=== PATIENT | male | born 1970 | race Caucasian/White ===

== ENCOUNTER 2020-10-01 09:43 | Outpatient (REF) | payer MEDICARE, MEDICAID, SELFPAY ==
[2020-10-01 10:20] LABS: MANUAL DIFF FLAG NO
[2020-10-01 10:23] LABS: Basophils Percent Auto 0.7 % (0-2); Eosinophils Absolute Auto 0.3 X10*3/uL (0.0-0.4); Eosinophils Percent Auto 7.7 % (0-4); Hematocrit 43.9 % (42-52); Hemoglobin 15.3 g/dl (14.0-18.0); Imm Gran Abs Auto 0.01 X10*3/uL (0.00-0.03); Imm Gran Pct Auto 0.2 % (0.0-0.4); Lymphocytes Absolute Auto 1.2 X10*3/uL (1.2-4.9); Lymphocytes Percent Auto 28.4 % (20-40); Mean Corpuscular HGB Conc 34.9 g/dl (31.0-36.0); Mean Corpuscular Hemoglobin 30.6 pg (27.0-33.0); Mean Corpuscular Volume 87.8 fL (80-98); Monocytes Absolute Auto 0.4 X10*3/uL (0.1-1.2); Monocytes Percent Auto 9.4 % (2-11); Neutrophils Absolute Auto 2.2 X10*3/uL (2.0-8.3); Neutrophils Percent Auto 53.6 % (45-73); Platelet Count 210 X10*3/uL (160-400); Red Cell Distribution Width 12.7 % (11.0-16.0); White Blood Count 4.2 X10*3/uL (4.8-10.8)
[2020-10-01 10:42] LABS: Estimated Average Glucose 103 mg/dL; Hemoglobin A1c % 5.2 %
[2020-10-01 10:48] LABS: Glucose Urine UA NEG (NEG); Leukocyte Esterase Urine NEG (NEG); Nitrite Urine NEG (NEG); Urine Blood NEG (NEG); Urine Ketones NEG (NEG); Urine Protein NEG (NEG-TRACE)
[2020-10-01 10:56] LABS: Alanine Aminotransferase 50 U/L (0-40); Albumin Level 4.7 g/dL (3.5-5.0); Alkaline Phosphatase 64 U/L (39-117); Anion Gap 13 (12-20); Aspartate Amino Transferase 42 U/L (5-37); Bilirubin Total 0.4 mg/dL (0.0-1.0); Blood Urea Nitrogen 19 mg/dL (9-16); Calcium 9.3 mg/dL (8.4-10.2); Carbon Dioxide 25 mmol/L (22-29); Chloride 104 mmol/L (96-108); Cholesterol 226 mg/dL; Estimated Glomerular Filt Rate > 60; Glucose Fasting 132 mg/dL (60-99); HDL Cholesterol 43 mg/dL; LDL Cholesterol Calculated 141 mg/dl; Potassium 4.2 mmol/L (3.3-5.1); Sodium 138 mmol/L (135-145); Triglycerides 214 mg/dL
[2020-10-01 10:58] LABS: Color Urine YELLOW
[2020-10-01 10:59] LABS: Appearance Urine CLEAR
[2020-10-01 11:05] LABS: Creatinine Urine 130.81 mg/dL; Microalbumin Urine < 5.0 mg/L
[2020-10-01 11:20] LABS: Prostate Specific Antigen 0.77 ng/mL (<0.05-4.0)
== END 2020-10-01 09:44 | disposition home or self-care (01) ==
LOC: HO.LAB 09:43
PROVIDERS: PCP Internal Medicine; Visit Provider Internal Medicine
DX: R73.03 Prediabetes (principal); I10 Essential (primary) hypertension; K76.0 Fatty (change of) liver, not elsewhere classified; R79.89 Other specified abnormal findings of blood chemistry; Z12.5 Encounter for screening for malignant neoplasm of prostate
CPT/HCPCS: 36415; 80053; 80061; 81003; 82043; 83036; 84153; 85025

== ENCOUNTER 2021-11-18 06:29 | Day surgery (SDC) | payer MEDICARE, MEDICAID, SELFPAY ==
[2021-11-12 14:24] VITALS: BMI 31.4
--- NOTE | 2021-11-15 08:29 | HO.ANESPROP2 ---
Documented by User: Erum Ledesma NP 11/15/21 08:30 HPI - Anesthesia Eval Consult details Narrative: 51yo M for Colonoscopy [facility] Past Medical History Medical History (Updated 05/21/21 @ 09:34 by Rhona Pratt, RN) Common variable immunodeficiency COVID-19 vaccine series completed Fatty liver Gout HTN (hypertension) Hyperlipidemia GORDO on CPAP Surgical History Surgical History (Updated 05/20/21 @ 16:12 by Rhona Pratt, RN) History of esophagogastroduodenoscopy (EGD) History of umbilical hernia repair Hx of colonoscopy Social History Social History Are you a primary career and guidance counselor to a significant other at home: No Do you presently have visiting nurse or other home services: No Patient Tobacco Use Status: Former Tobacco user Quit Date: 30 yrs ago Tobacco use type: Cigarette Second Hand Smoke Exposure: No Use of substances other than those prescribed or required for medical reasons: No Are you DNR?: No Advance Directives: No Advance Directives Information Provided: Yes Advance Directives on File: No Meds Allergies Allergy/AdvReac Type Severity Reaction Status Date / Time codeine [Codeine] Allergy Intermediate SOB/TACHYCARDIA, Verified 11/18/21 06:55 tachycardia, SOB Shellfish Allergy Intermediate NAUSEA & Uncoded 05/20/21 16:12 VOMITING Home Medications Medication Instructions Recorded Confirmed Last Taken Type Hizentra QWEEK 05/21/21 Unknown History allopurinol 300 mg tablet 300 mg PO DAILY 05/21/21 11/12/21 Unknown History gemfibrozil 600 mg tablet 600 mg PO DAILY 05/21/21 11/12/21 Unknown History lisinopril 20 mg tablet 20 mg PO DAILY 05/21/21 11/12/21 11/18/21 History dcsmpnurkwru-lirsmrzj-ijrkkk 1 tab PO DAILY 05/21/21 11/12/21 Unknown History tablet (Multivitamin 50 Plus) Exam Exam Date and Time: November 15, 2021 0829 Height,Weight and Vital Signs: Height 5 ft 6.5 in Weight 89.811 kg Assessment and Plan Assessment Anesthesia Assessment: Chart Reviewed Documented by User: Pablo Shaffer MD 11/18/21 07:06 [facility] Past Medical History Medical History (Updated 05/21/21 @ 09:34 by Rhona Pratt, RN) Common variable immunodeficiency COVID-19 vaccine series completed Fatty liver Gout HTN (hypertension) Hyperlipidemia GORDO on CPAP Family History Family history of problems with anesthesia: No Surgical History Surgical History (Updated 05/20/21 @ 16:12 by Rhona Pratt, RN) History of esophagogastroduodenoscopy (EGD) History of umbilical hernia repair Hx of colonoscopy History of Problems with Anesthesia: No Social History Social History Are you a primary career and guidance counselor to a significant other at home: No Do you presently have visiting nurse or other home services: No Patient Tobacco Use Status: Former Tobacco user Quit Date: 30 yrs ago Tobacco use type: Cigarette Second Hand Smoke Exposure: No Use of substances other than those prescribed or required for medical reasons: No Are you DNR?: No Advance Directives: No Advance Directives Information Provided: Yes Advance Directives on File: No Meds Allergies Allergy/AdvReac Type Severity Reaction Status Date / Time codeine [Codeine] Allergy Intermediate SOB/TACHYCARDIA, Verified 11/18/21 06:55 tachycardia, SOB Shellfish Allergy Intermediate NAUSEA & Uncoded 05/20/21 16:12 VOMITING Home Medications Medication Instructions Recorded Confirmed Last Taken Type Hizentra QWEEK 05/21/21 Unknown History allopurinol 300 mg tablet 300 mg PO DAILY 05/21/21 11/12/21 Unknown History gemfibrozil 600 mg tablet 600 mg PO DAILY 05/21/21 11/12/21 Unknown History lisinopril 20 mg tablet 20 mg PO DAILY 05/21/21 11/12/21 11/18/21 History uzuzzuoktmkp-ndzqezsx-itcbfk 1 tab PO DAILY 05/21/21 11/12/21 Unknown History tablet (Multivitamin 50 Plus) Exam Airway Mallampati Class: II TM Dist: >3cm Neck ROM: Full Loose/Missing/Broken Teeth: No Heart: rrr+s1s2 Lungs: cta b/l Assessment and Plan Assessment Anesthesia Assessment: Anesthesia Plan Discussed Final Anesthetic Review Family History of Problems with Anesthesia: No History of Problems with Anesthesia: No NPO: Yes ASA Class: II Final Preanesthetic Review: No Changes in Pt Med Stat, Meds/Allgs Chart Reviewed, Consent Obtained/Reviewed and Anes Risks/Benef Reviewed Patient Risk: Intermediate Procedure Risk: Low Assessment/Block/Sedation in SS: Assess/Block/Sedation-SS Anesthetic Plan Anesthetic Plan: MAC: and Agree w/ Assess. and Plan Disposition: Standard PACU
[2021-11-18 07:00] VITALS: BP 125/80; PULSE 92; RESP 16; TEMP 36.2; O2SAT 97
[2021-11-18] MEDS: Lactated Ringers 1,000 ML 100 ML IVCONT (07:05)
[2021-11-18 08:38] VITALS: BP 138/98; PULSE 118; RESP 16; TEMP 36.5; O2SAT 96
--- NOTE | 2021-11-18 08:41 | PM.OP ---
Brief Operative Note Date of Service: 11/18/21 Pre-op diagnosis: Screening Post-op diagnosis: other (Colon Polyp) Procedure: Colonoscopy to the cecum and TI with hot snare polypectomy Surgeon: Joey Fuentes Anesthesia: MAC Was an Email Marketing Manager used for this Procedure?: No Estimated blood loss (mL): 0 Pathology: other (A. Ascending colon polyp) Condition: stable Disposition: PACU
[2021-11-18 08:53] VITALS: BP 124/71; PULSE 99; RESP 16; O2SAT 97
[2021-11-18] MEDS: Acetaminophen 325 MG TABLET 650 MG PO (08:57)
--- NOTE | 2021-11-18 19:41 | OP_ITS ---
SURGEON: Joey Fuentes MD INDICATIONS: The patient presents for evaluation of colorectal cancer screening. Full consent was obtained from him for this, including risks of bleeding and perforation. PREOPERATIVE DIAGNOSIS: Colorectal cancer screening. POSTOPERATIVE DIAGNOSIS: PROCEDURE PERFORMED: Colonoscopy to the cecum and terminal ileum with hot snare polypectomy. ESTIMATED BLOOD LOSS: COMPLICATIONS: ANESTHESIA: Monitored anesthesia care. ASSISTANTS: SPECIMENS: POSTOPERATIVE DIAGNOSES: Colorectal cancer screening, colon polyp, diverticulosis and internal hemorrhoids. DESCRIPTION OF PROCEDURE: The patient was placed in the left lateral decubitus position. The digital rectal exam revealed no abnormalities. The Olympus video pediatric colonoscope was entered into the rectum and advanced easily to the cecum. Once in the cecum, I did identify cecal pouch with normal-appearing ileocecal valve. The terminal ileum was cannulated and appeared normal. Scope was withdrawn back in the colon. The entire cecum was well visualized except for a relatively small portion that had some solid stool that could not be completely cleared away. The scope was then slowly withdrawn assessing all mucosal surfaces carefully. Preparation was good throughout the colon other than the sigmoid colon, which had a fair amount of solid stool. In the ascending colon was an approximately 10 mm polyp, which was removed by hot snare polypectomy and recovered by suction. The polypectomy site appeared clean, without any sign of residual polyp nor bleeding. I did not visualize any other polyps, colitis, nor angiodysplasia. There was a mild amount of sigmoid diverticulosis. In the rectum, scope was retroflexed visualizing internal hemorrhoids, but no other pathology. The rectal mucosa appeared normal. The scope was straightened and withdrawn from the patient. He tolerated the procedure well and was returned to recovery area in stable condition. IMPRESSION: 1. Colon polyp, status post hot snare polypectomy. 2. Limited prep in area of cecum and sigmoid colon. 3. Diverticulosis. 4. Internal hemorrhoids. PLAN: The results of the pathology will be checked. Even if this is not a tubular adenoma, I would recommend a followup colonoscopy in 5 years for further surveillance. He was advised not to use any aspirin or NSAIDs for 1 week. MD SABRINA Siegel/TAM / [id number]
== END 2021-11-18 09:14 | disposition home or self-care (01) ==
PROVIDERS: PCP Internal Medicine; Visit Provider Internal Medicine
PROC: 0DJD8ZZ Inspection of Lower Intestinal Tract, Via Natural or Artificial Opening Endoscopic (ICD-10-PCS; CPT 45378; principal; 2021-11-18 07:30)
DX: Z12.11 Encounter for screening for malignant neoplasm of colon (principal); D12.2 Benign neoplasm of ascending colon; K57.30 Diverticulosis of large intestine without perforation or abscess without bleeding; K64.8 Other hemorrhoids; K76.0 Fatty (change of) liver, not elsewhere classified; D83.9 Common variable immunodeficiency, unspecified; E78.5 Hyperlipidemia, unspecified; I10 Essential (primary) hypertension; M10.9 Gout, unspecified; G47.33 Obstructive sleep apnea (adult) (pediatric); Z99.89 Dependence on other enabling machines and devices; Z79.899 Other long term (current) drug therapy; Z88.8 Allergy status to other drugs, medicaments and biological substances
CPT/HCPCS: 45385; 88305

== ENCOUNTER 2021-12-09 14:56 | Outpatient (REF) | payer MEDICARE, MEDICAID, SELFPAY ==
[2021-12-09 15:21] LABS: MANUAL DIFF FLAG NO
[2021-12-09 15:39] LABS: Basophils Percent Auto 0.6 % (0-2); Eosinophils Absolute Auto 0.2 X10*3/uL (0.0-0.4); Eosinophils Percent Auto 3.4 % (0-4); Hematocrit 42.2 % (42.0-52.0); Hemoglobin 14.8 g/dl (14.0-18.0); Imm Gran Abs Auto 0.02 X10*3/uL (0.00-0.03); Imm Gran Pct Auto 0.3 % (0.0-0.4); Lymphocytes Absolute Auto 1.5 X10*3/uL (1.2-4.9); Lymphocytes Percent Auto 23.6 % (20-40); Mean Corpuscular HGB Conc 35.1 g/dl (31.0-36.0); Mean Corpuscular Volume 85.6 fL (80.0-98.0); Mean Platelet Volume 9.7 fL (9.4-12.4); Monocytes Absolute Auto 0.6 X10*3/uL (0.1-1.2); Monocytes Percent Auto 9.7 % (2-11); Neutrophils Absolute Auto 4.1 x10*3/uL (2.0-8.3); Neutrophils Percent Auto 62.4 % (45-73); Platelet Count 256 X10*3/uL (160-400); Red Blood Count 4.93 X10*6/uL (4.60-5.80); Red Cell Distribution Width 12.3 % (11.0-16.0); White Blood Count 6.5 X10*3/uL (4.8-10.8)
[2021-12-09 15:48] LABS: Estimated Average Glucose 111 mg/dL; Hemoglobin A1c % 5.5 %
[2021-12-09 16:32] LABS: Alanine Aminotransferase 77 U/L (0-40); Albumin Level 4.4 g/dL (3.5-5.0); Alkaline Phosphatase 141 U/L (39-117); Anion Gap 16 (12-20); Aspartate Amino Transferase 60 U/L (5-37); Bilirubin Total 0.4 mg/dL (0.0-1.0); Blood Urea Nitrogen 17 mg/dL (9-16); C Reactive Protein 2.59 mg/dL (< or = 0.50); Carbon Dioxide 22 mmol/L (22-29); Chloride 104 mmol/L (96-108); Cholesterol 213 mg/dL; Estimated Glomerular Filt Rate > 60; Glucose Random 83 mg/dL (60-115); HDL Cholesterol 44 mg/dL; LDL Cholesterol Calculated 129 mg/dl; Potassium 4.3 mmol/L (3.3-5.1); Sodium 138 mmol/L (135-145); Total Protein 7.7 g/dL (6.5-8.0); Triglycerides 204 mg/dL
== END 2021-12-09 14:57 | disposition home or self-care (01) ==
LOC: HO.LAB 14:56
PROVIDERS: PCP Internal Medicine; Visit Provider Internal Medicine
DX: Z00.00 Encounter for general adult medical examination without abnormal findings (principal); G47.33 Obstructive sleep apnea (adult) (pediatric); R05.9 Cough, unspecified; I10 Essential (primary) hypertension; R73.03 Prediabetes; R53.83 Other fatigue
CPT/HCPCS: 36415; 80053; 80061; 83036; 85025; 86140

== ENCOUNTER 2022-01-06 08:34 | Outpatient (REF) | payer MEDICARE, MEDICAID, SELFPAY ==
--- NOTE | ~2022-01-06 | XR_ITS ---
EXAMINATION: XR CHEST CLINICAL INFORMATION: Cough, shortness of breath COMPARISON: Chest radiographs 12/13/2014 TECHNIQUE: 2 views of the chest were obtained. FINDINGS: No lobar or segmental airspace consolidation, groundglass opacity, or effusion. Heart size normal. Vascularity normal. Costophrenic sulci are clear. Bony structures are unremarkable. No significant changes. XR/XR chest 2V IMPRESSION: Unremarkable examination.
== END 2022-01-06 08:35 | disposition home or self-care (01) ==
LOC: HO.XRAY 08:34
PROVIDERS: PCP Internal Medicine; Visit Provider Internal Medicine
DX: R05.9 Cough, unspecified (principal); R06.02 Shortness of breath
CPT/HCPCS: 71046

== ENCOUNTER 2022-02-03 08:36 | Outpatient (REF) | payer MEDICARE, MEDICAID, SELFPAY ==
--- NOTE | ~2022-02-03 | US_ITS ---
EXAMINATION: US ABDOMEN COMPLETE CLINICAL INFORMATION: Elevated liver enzymes. COMPARISON: CT abdomen and pelvis with contrast dated 09/25/2014. Ultrasound abdomen complete dated 08/12/2007. TECHNIQUE: Real-time imaging of the abdominal viscera. FINDINGS: PANCREAS: Normal. ABDOMINAL AORTA: The proximal, mid, and distal segments are normal in caliber. INFERIOR VENA CAVA: Visualized portions are normal. LIVER: Increased liver parenchyma echogenicity limiting evaluation of small lesions. However, accounting for these limitations, aside from areas of fatty sparing adjacent to the gallbladder fossa, no discrete focal abnormality is identified. GALLBLADDER: Normal. The gallbladder is physiologically distended without evidence of stones, sludge, polyps, wall thickening or pericholecystic fluid. COMMON BILE DUCT: Normal in caliber measuring 0.3 cm in diameter. RIGHT KIDNEY: No hydronephrosis. No renal calculi or focal parenchymal lesions. The kidney measures 13.4 cm in maximum dimension. LEFT KIDNEY: No hydronephrosis. No renal calculi or focal parenchymal lesions. The kidney measures 11.8 cm in maximum dimension. SPLEEN: Small 1.7 cm splenule. The spleen measures 15.6 cm in maximum dimension. FREE FLUID: None. US/US abdomen complete IMPRESSION: Increase liver parenchyma echogenicity suggesting the presence of hepatic steatosis. Correlate with liver function tests.
== END 2022-02-03 08:37 | disposition home or self-care (01) ==
LOC: HO.US 08:36
PROVIDERS: Visit Provider Internal Medicine
DX: R74.01 Elevation of levels of liver transaminase levels (principal)
CPT/HCPCS: 76700

== ENCOUNTER 2022-04-28 09:53 | Outpatient (REF) | payer MEDICARE, SELFPAY ==
[2022-04-29 14:07] LABS: Immunoglobulin A <5 mg/dL (47-310); Immunoglobulin G 857 mg/dL (600-1640); Immunoglobulin M <5 mg/dL (50-300)
[2022-05-01 12:01] LABS: Immunoglobulin E <2 kU/L (<OR=114)
== END 2022-04-28 09:54 | disposition home or self-care (01) ==
LOC: HO.LAB 09:53
PROVIDERS: PCP Internal Medicine; Referring Provider Internal Medicine; Visit Provider Internal Medicine Pulmonary Disease
DX: D83.9 Common variable immunodeficiency, unspecified (principal)
CPT/HCPCS: 36415; 82784; 82785

== ENCOUNTER 2022-06-02 08:19 | Outpatient (REF) | payer MEDICARE, SELFPAY ==
--- NOTE | ~2022-06-02 | CT_ITS ---
EXAMINATION: CT SINUS WITHOUT CONTRAST CLINICAL INFORMATION: 52-year-old with chronic sinusitis. COMPARISON: 02/10/2008 CT. TECHNIQUE: Volumetric CT imaging of the paranasal sinuses was done with 2-D multiplanar reformatted reconstructions. This CT examination was performed using dose optimization techniques as appropriate, variously including the following: *Automated exposure control *Adjustment of mA and/or kV according to patient size (this includes techniques or standardized protocols for targeted exams where dose is matched to indication/reason for exam; i.e. extremities or head) *Use of iterative reconstruction technique DLP: 105 mGy-cm FINDINGS: Nasal Cavity: Khcm-wq-utvoxrtt nasal septal deviation to the left. The olfactory recesses are partially opacified on the right and clear on the left. Nonspecific partial opacification of the right middle meatus. Nasal turbinates appear symmetric and within normal limits. No discrete nasal cavity masses. Nasopharyngeal soft tissues appear symmetric and normal in attenuation. Maxillary Sinuses: Moderate mucosal thickening seen throughout the right maxillary sinus with occlusion of the right OMC without air-fluid level. 1 cm probable retention cyst along the posterior floor of the left maxillary sinus with mild mucosal thickening along the anterior floor with a patent left OMC. Bilateral Antonio cells are noted with anatomic narrowing of the maxillary infundibula. Ethmoid Sinuses: Mild mucosal thickening along the ethmoid septae on the right with otherwise unopacified ethmoid complex, with intact bony bower. Frontal Sinuses: Hypoplastic. Sphenoid Sinus: Ezix-me-tujzlani mucosal thickening along the floor of the sphenoid sinus on the left. Right side of the sphenoid sinus is small. Carotid canals are posterolateral and covered by bone. Additional Findings: Limited assessment of the included intracranial soft tissue structures and intraorbital soft tissue structures is grossly unremarkable within the limitations of the exam. The mastoids and middle ear cavities are unopacified. CT/CT sinus wo IV con IMPRESSION: 1. Nasal septal deviation to the left with partial opacification of the right olfactory recess and right middle meatus. 2. Bilateral maxillary sinus mucosal inflammatory changes, right more than left, with occlusion of the right OMC. 3. Mild mucosal thickening along the floor of the sphenoid sinus on the left and mild mucosal thickening along the right ethmoid septae. 4. Hypoplastic frontal sinuses with a small right side of the sphenoid sinus. 5. No air-fluid levels.
== END 2022-06-02 08:20 | disposition home or self-care (01) ==
LOC: HO.CT 08:19
PROVIDERS: PCP Internal Medicine; Visit Provider Internal Medicine Pulmonary Disease
DX: J32.8 Other chronic sinusitis (principal)
CPT/HCPCS: 70486

== ENCOUNTER 2023-03-16 09:33 | Outpatient (REF) | payer MEDICARE, MEDICAID, SELFPAY ==
[2023-03-16 09:47] LABS: MANUAL DIFF FLAG NO
[2023-03-16 10:03] LABS: Basophils Percent Auto 1.2 % (0-2); Eosinophils Absolute Auto 0.3 X10*3/uL (0.0-0.4); Eosinophils Percent Auto 8.3 % (0-4); Hematocrit 49.4 % (42.0-52.0); Hemoglobin 17.3 g/dl (14.0-18.0); Lymphocytes Absolute Auto 1.2 X10*3/uL (1.2-4.9); Lymphocytes Percent Auto 36.1 % (20-40); Mean Corpuscular Hemoglobin 29.8 pg (27.0-33.0); Mean Corpuscular Volume 85.2 fL (80.0-98.0); Mean Platelet Volume 10.1 fL (9.4-12.4); Monocytes Absolute Auto 0.3 X10*3/uL (0.1-1.2); Monocytes Percent Auto 10.2 % (2-11); Neutrophils Absolute Auto 1.4 x10*3/uL (2.0-8.3); Neutrophils Percent Auto 44.2 % (45-73); Platelet Count 193 X10*3/uL (160-400); White Blood Count 3.2 X10*3/uL (4.8-10.8)
[2023-03-16 10:14] LABS: Estimated Average Glucose 114 mg/dL; Hemoglobin A1c % 5.6 % (<6.0)
[2023-03-16 10:53] LABS: Alanine Aminotransferase 55 U/L (0-40); Albumin Level 4.3 g/dL (3.5-5.0); Alkaline Phosphatase 56 U/L (39-117); Anion Gap 11 (12-20); Aspartate Amino Transferase 45 U/L (5-37); Bilirubin Total 0.4 mg/dL (0.0-1.0); Blood Urea Nitrogen 21 mg/dL (9-16); Calcium 8.8 mg/dL (8.4-10.2); Carbon Dioxide 26 mmol/L (22-29); Chloride 107 mmol/L (96-108); Cholesterol 246 mg/dL (<200); Estimated Glomerular Filt Rate > 60; Glucose Fasting 127 mg/dL (60-99); HDL Cholesterol 31 mg/dL (>40); LDL Cholesterol Calculated 161 mg/dL (<100); Potassium 4.2 mmol/L (3.3-5.1); Sodium 140 mmol/L (135-145); Triglycerides 273 mg/dL (<150); Uric Acid 5.9 mg/dL (3.4-7.0)
[2023-03-16 10:58] LABS: Prostate Specific Antigen 3.25 ng/mL (<0.05-4.0)
[2023-03-16 11:13] LABS: Thyroid Stimulating Hormone 0.84 uIU/mL (0.32-4.0)
== END 2023-03-16 09:34 | disposition home or self-care (01) ==
LOC: HO.LAB 09:33
PROVIDERS: PCP Internal Medicine; Visit Provider Internal Medicine
DX: Z12.5 Encounter for screening for malignant neoplasm of prostate (principal); R63.5 Abnormal weight gain; I10 Essential (primary) hypertension; E78.5 Hyperlipidemia, unspecified; M10.9 Gout, unspecified
CPT/HCPCS: 36415; 80053; 80061; 83036; 84153; 84443; 84550; 85025

== ENCOUNTER 2024-12-05 13:57 | Outpatient (AMB) | payer MEDICARE, MEDICAID, SELFPAY ==
--- NOTE | 2024-12-05 14:01 | A.OFFPC_ITS ---
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 Accompanied by: Self / Same As Patient Allergies codeine [Codeine] Allergy (Intermediate, Verified 12/05/24 14:02) SOB/TACHYCARDIA, tachycardia, SOB lisinopril Adverse Reaction (Verified 12/05/24 15:08) Dry cough Shellfish Allergy (Intermediate, Uncoded 12/05/24 14:02) NAUSEA & VOMITING Medication List - Last Reconciled 12/05/24 by BRAVO Hastings allopurinol 300 mg PO DAILY atorvastatin 20 mg PO DAILY citalopram 40 mg PO DAILY fluticasone propionate 50 mcg/actuation sprays intranasal gemfibrozil 600 mg PO DAILY [Hizentra QWEEK] losartan 75 mg PO DAILY vlisgebkpvvm-hzybenmj-slzjqd (Multivitamin 50 Plus tablet) 1 tab PO DAILY HPI HPI Comments History of Present Illness Details 54 year old male with history of common variable immnodeficiency, htn, hld, gout, fatty liver presents today for management of chronic conditions and to establish care. He has no concerns today. He does report that he has chronic allergic rhinitis and did develop a sinus infection several weeks ago which was effectively treated by the Augmentin. He is reporting abdominal bloating ongoing for several days. He does endorse feeling constipated. He does have regular bowel movements that are small and hard. He acknowledges he does not drink enough water. Drinks lot of ice tea and coffee. No severe pain, nausea, vomit ing, diarrhea. No fevers or chills. Common variable immunodeficiency- follows with [facility]. Pt administers Hizrenta weekly. Diagnosed years ago following a severe Hand Foot and Mouth infection. No severe illnesses since. Hypertension-compliant with losartan 50 mg daily. Blood pressure uncontrolled today 140/78, repeat 150/88. Noncompliant with healthy diet Hyperlipidemia-compliant with atorvastatin 20 mg and gemfibrozil. Due for lipid panel. Fatty liver-no longer consuming alcohol, however as above, not practicing healthy lifestyle with diet low in unhealthy fats, highly processed foods and carbohydrates Gout-remains on allopurinol 300 mg daily. Has not had any recent flares. Not on any thiazide diuretics and did discontinue alcohol consumption General: No fevers, malaise, unintentional weight loss Cardiovascular: No chest pain, palpitations, or leg edema Respiratory: No shortness of breath, wheezing, cough GI: See hpi. No nausea, vomiting, diarrhea, constipation, melena, hematochezia Neuro: No headaches, weakness, paresthesias Skin: No rashes or lesions Constitutional - Awake and Alert, No apparent distress Eyes - PERRLA, EOMI Cardiovascular - S1S2, RRR, No edema Respiratory - Normal lung expansion, Normal respiratory effort, No respiratory distress, CTA bilaterally Gastrointestinal - NT / ND; +BS; No rebound or guarding Extremities - no calf tenderness bilaterally, no swelling Skin - Warm/Dry Neurological - Alert & oriented x3 Psychological - Appropriate affect PFSH Medical History (Updated 12/05/24 @ 15:11 by BRAVO Hastings) Obesity COVID-19 vaccine series completed GORDO on CPAP Common variable immunodeficiency Hyperlipidemia Gout Fatty liver HTN (hypertension) Surgical History (Updated 05/20/21 @ 16:12 by Rhona Pratt RN) Hx of colonoscopy History of esophagogastroduodenoscopy (EGD) History of umbilical hernia repair Social History Are you a primary career professional to a significant other at home: No Do you presently have visiting nurse or other home services: No Patient Tobacco Use Status: Former Tobacco user Tobacco use type: Cigarette Second Hand Smoke Exposure: No Physical exam (Primary Care) Vital Signs: Last Vital Signs Temp 97.8 F 12/05/24 14:04 Pulse 68 12/05/24 14:04 Resp 16 12/05/24 14:04 BP 140/78 H 12/05/24 14:04 Pulse Ox 98 12/05/24 14:04 Oxygen Delivery Method Room Air 12/05/24 14:04 BMI result Body Mass Index 33.7 Tobacco/Smoking Status: Tobacco use Status Patient Tobacco Use Status Former Tobacco user 12/05/24 14:06 Tobacco use type Cigarette 12/05/24 14:06 Coding Level of Care Code New Pt Level 4 (27028) Complex EM visit Add On G2211 Diagnoses HTN (hypertension) I10 Hyperlipidemia E78.5 Gout M10.9 Obesity E66.9 Common variable immunodeficiency D83.9 Assessment & Plan Assessment & Plan (1) HTN (hypertension): Code(s): I10 - Essential (primary) hypertension Category: Medical Plan: Uncontrolled. Increase losartan to 75mg daily. Discussed improvements to diet including diet low in sodium and highly processed food as well as increased exercise. BMP ordered to evaluate renal function and electrolyte levels. (2) Hyperlipidemia: Code(s): E78.5 - Hyperlipidemia, unspecified Category: Medical Plan: Lipid panel ordered. Continue atorvastatin 20mg and gemfibrozil. Pendiing results, may consider increasing dose of atorvastatin in place of gemfibrozil. Lifestyle modifications discussed as above to include avoidance of unhealthy fats. (3) Gout: Code(s): M10.9 - Gout, unspecified Category: Medical Plan: No recent gout flare. Has discontinued alcohol use and is not on any thiazide diuretics. Will check uric acid level. He is open to discussion on discontinuing allopurinol. (4) Obesity: Code(s): E66.9 - Obesity, unspecified Category: Medical Plan: Weight loss efforts encouraged. Discussed healthy diet rich in protein, vegetables, and fruits. Increase exercise (5) Common variable immunodeficiency: Code(s): D83.9 - Common variable immunodeficiency, unspecified Category: Medical Plan: Stable. Continue Hizrenta injections. Continue [facility] with [facility]. Will request records. Plan Follow up in 2 weeks for blood pressure check. Labs to be completed as below. Orders: Orders Basic Metabolic Panel Today E66.9 - Obesity, unspecified, E78.5 - Hyperlipidemia, unspecified, G47.33 - Obstructive sleep apnea (adult) (pediatric), I10 - Essential (primary) hypertension, M10.9 - Gout, unspecified, Z99.89 - Dependence on other enabling machines and devices Lipid Panel Today E66.9 - Obesity, unspecified, E78.5 - Hyperlipidemia, unspecified, G47.33 - Obstructive sleep apnea (adult) (pediatric), I10 - Essential (primary) hypertension, M10.9 - Gout, unspecified, Z99.89 - Dependence on other enabling machines and devices Liver Panel Today E66.9 - Obesity, unspecified, E78.5 - Hyperlipidemia, unspecified, G47.33 - Obstructive sleep apnea (adult) (pediatric), I10 - Essential (primary) hypertension, M10.9 - Gout, unspecified, Z99.89 - Dependence on other enabling machines and devices Complete Blood Count Auto Diff Today E66.9 - Obesity, unspecified, E78.5 - Hyperlipidemia, unspecified, G47.33 - Obstructive sleep apnea (adult) (pediatric), I10 - Essential (primary) hypertension, M10.9 - Gout, unspecified, Z99.89 - Dependence on other enabling machines and devices Hemoglobin A1c Today E66.9 - Obesity, unspecified, E78.5 - Hyperlipidemia, unspecified, G47.33 - Obstructive sleep apnea (adult) (pediatric), I10 - Essential (primary) hypertension, M10.9 - Gout, unspecified, Z99.89 - Dependence on other enabling machines and devices TSH reflex Free T4 Today E66.9 - Obesity, unspecified, E78.5 - Hyperlipidemia, unspecified, G47.33 - Obstructive sleep apnea (adult) (pediatric), I10 - Ess ential (primary) hypertension, M10.9 - Gout, unspecified, Z99.89 - Dependence on other enabling machines and devices Medications: New losartan 75 mg (1.5 x 50 mg) PO DAILY 135 tabs 1RF simethicone (Gas Relief 80 (simethicone)) 80 mg PO QID PRN 30 tabs 0RF abdominal distention Discontinued lisinopril Discontinued Reason: Doctor's Order 20 mg PO DAILY 90 tabs 1RF
--- OUTSIDE RECORDS SUMMARY | 2024-12-05 14:01 | XMS_ITS | Patient Health Record ---
Author Organization [facility] [place] Address [address] [place], [place] [id number] Care Team Providers Care Soa Architect Name Role Phone Rl Alanis Primary Care Provider Magdi Peguero Unavailable [phone] Rober Ferris Unavailable [phone] Allergies Allergen (clinical drug ingredient) Drug/Non Drug Allergy documented on EMR Reaction Allergy Type Onset Date Status codeine Codeine (uncoded) GI distress Allergy Active Shellfish (FN) Shellfish (uncoded) GI Distress Allergy Active Reason For Referral No Information Medications Medication SIG (Take, Route, Frequency, Duration) Notes Start Date End Date Status Sulfamethoxazole-Trime thoprim 800-160 MG 1 tablet Orally Twice a day for 10 days 09/27/2024 Active Amoxicillin-Pot Clavulanate 875-125 MG 1 tablet Orally every 12 hrs for 10 days 11/11/2024 Active Citalopram Hydrobromide 40 MG 1 tablet Orally Once a day for 90 days one tablet once a day Active predniSONE 20 MG 2 tablets Orally Onc e a day for 5 days 11/11/2024 Active Allopurinol 300 MG 1 tablet Orally Once a day Active predniSONE 20 MG 2 tablets Orally Onc e a day for 5 days 09/27/2024 Active Hizentra 4 GM/20ML 15 grams Subcutaneou s Weekly Active EpiPen 2-Alexis 0.3 MG/0.3ML as directed Injection As Needed as needed Active CPAP DX: GORDO G47.33 as directed SETTIN GS 5-13cm H20: fit for mask SIG DATE: During sleep nightly for the treatment of sleep apnea Active Cefpodoxime Proxetil 100 MG 1 tablet with food Orally every 12 hrs for 7 days 06/27/2024 Active Fluticasone Propionate 50 MCG/ACT USE 2 SPRAYS INTO EACH NOSTRIL ONCE DAILY for 90 Active predniSONE 10 MG 6 tablets today and tomorrow, then taper by 1 tab every day Orally Once a day for 7 days 06/27/2024 Active Immunizations Vaccine Route Administration Date Status Comme nts COVID-19 Pfizer Unknown 10/08/2020 Administered COVID-19 Pfizer Unknown 06/05/2021 Administered receive d both vaccines and Booster 06/05/21 Zz Flucelvax Quadrivelant 2016 Unknown 08/18/2017 Refused Problems Problem Type SNOMED Code ICD Code Onset Dates Problem Status W/U Status Risk Notes Problem Hypertension (96712402) Hypertension (I10) Active confirmed Problem Obstructive sleep apnea (87324988) Obstructive sleep apnea (G47.33) Active confirmed Problem Eustachian tube dysfunction (05373986) Eustachian tube dysfunction (H69.80) Active confirmed Problem Chronic rhinitis (89348414) Rhinitis (J31.0) Active confirmed Problem Vitamin D deficiency (36579077) Vitamin D deficiency (E55.9) Active confirmed Problem 66043343 Hypersomnia (G47.10) Active confirmed Problem Daytime somnolence (216127345396) Excessive daytime sleepiness (G47.19) Active confirmed Problem Hyperlipidemia (34731527) Hyperlipidemia (E78.5) Active confirmed Problem Fatigue (87279417) Fatigue (R53.83) Active conf irmed Problem 70333562 Acute sinusitis, recurrence not specified, unspecified location (J01.90) Active confirmed Problem 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) Common variable immunodeficiency (D83.9) Active confirmed Problem Recurrent sinusitis (487384942) Recurrent sinusitis (J32.9) Active confirmed Vital Signs Heart Rate 84 /min 06/27/2024 Temperature 97.5 degrees Fahrenheit 06/27/2024 Respiratory Rate 16 /min 06/27/2024 Blood pressure diastolic 72 mm Hg 06/27/2024 Height 67 in 06/27/2024 Blood pressure systolic 124 mm Hg 06/27/2024 Weight 210 lbs 06/27/2024 BMI 32.89 kg/m2 06/27/2024 Encounters Encounter Location Date Provider Diagnosis [facility] [address] [id number] 06/27/2024 Magdi Gaytan Upper respiratory tr act infection J06.9 ; Common variable immunodeficiency D83.9 ; Recurrent sinusitis J32.9 ; Rhinitis J31.0 ; Eustachian tube dysfunction H69.80 ; Obstructive sleep apnea G47.33 ; Fatigue R53.83 and Hyperlipidemia E78.5 [facility] [address] [id number] 02/26/2024 Magdi Gaytan [facility] [address] [id number] 05/11/2024 Magdi Gaytan [facility] [address] [id number] 09/26/2024 Magdi Gaytan [facility] [address] [address] 11/11/2024 Rober Rosenberges Upper respiratory tr act infection J06.9 [facility] [address] [id number] 02/08/2024 Magdi Gaytan [facility] [address] [id number] 02/08/2024 Magdi Gaytan Assessments Encounter Date Diagnosis (ICD Code) Assessment Notes Treatment Notes Treatment Clinical Notes Section Notes 06/27/2024 Upper respiratory tract infection (ICD-10 - J06.9) I discussed my impressions with James. I will treat him with a course of antibiotic as well as a tapering dose of prednisone. Additional interventions as described. I have asked him that contact me should his symptoms not improve and certainly should they worsen Overall, stable. Recurrent sinusitis requiring treatment. 11/11/2024 Upper respiratory tract infection (ICD-10 - J06.9) 06/27/2024 Common variable immunodeficiency (ICD-10 - D83.9) At this time he is stable. He will continue to receive subcutaneous immunoglobulin (ScIg). IgG lkevels have been adequate. I recommended a follow-up visit in 6 months. However, I have asked him to contact me before then for any questions, concerns Overall, stable. Recurrent sinusitis requiring treatment. 06/27/2024 Recurrent sinusitis (ICD-10 - J32.9) Consider referral for ENT consultation. He will continue his topical nasal steroid spray Overall, stable. Recurrent sinusitis requiring treatment. 06/27/2024 Rhinitis (ICD-10 - J31.0) I have asked him to use the nasal saline rinse regularly followed by application of a topical nasal steroid spray Overall, stable. Recurrent sinusitis requiring treatment. 06/27/2024 Eustachian tube dysfunction (ICD-10 - H69.80) Overall, stable. Recurrent sinusitis requiring treatment. 06/27/2024 Obstructive sleep apnea (ICD-10 - G47.33) He will continue nightly use of CPAP Overall, stable. Recurrent sinusitis requiring treatment. 06/27/2024 Fatigue (ICD-10 - R53.83) As above Overall, stable. Recurrent sinusitis requiring treatment. 06/27/2024 Hyperlipidemia (ICD-10 - E78.5) He will continue to follow with his primary care physician. e previously discussed the potential for premature atherosclerosis with immunoglobulin replacement therapy Overall, stable. Recurrent sinusitis requiring treatment. 06/27/2024 Other Portions of thi s note were dictated using voice recognition technology. Please forgive grammar, spelling and punctuation errors Overall, stable. Recurrent sinusitis requiring treatment. Plan Of Treatment Pending Test Test Name Order Date BUN (Blood Urea Nitrogen) 01/05/2014 CBC WITH AUTO DIFFERENTIAL 06/20/2010 CBC WITH AUTO DIFFERENTIAL 05/07/2010 CHOLESTEROL 09/26/2019 CHOLESTEROL 06/27/2021 CHOLESTEROL 01/05/2014 IGG QUANTITATIVE 01/05/2014 IGG QUANTITATIVE 06/06/2014 TSH REFLEX FREE T4 06/20/2010 BASIC METABOLIC PANEL 08/17/2023 BASIC METABOLIC PANEL 10/07/2016 HEPATIC FUNCTION PANEL 08/17/2023 CREATININE 01/05/2014 bun 06/27/2021 CHEST XRAY PA LAT 12/12/2014 CREATININE 06/27/2021 CBC W/O DIFF 10/07/2016 LIPID PANEL 08/17/2023 CHOLESTEROL 10/07/2016 CREATINE, SERUM 05/28/2020 TSH REFLEX FREE T4 08/17/2023 CHOLESTEROL 01/11/2021 BUN 01/11/2021 BUN 09/26/2019 BUN 05/28/2020 CREATININE 09/26/2019 IGG 05/28/2020 IGG 06/27/2021 HEMOGLOBIN A1C 08/17/2023 25OH VITAMIN D 08/17/2023 BUN 08/12/2021 CBC (COMPLETE BLOOD COUNT) WITH DIFF CHOLESTEROL, TOTAL 08/18/2017 IMMUNOGLOBULIN A (IGA) 04/16/2022 IMMUNOGLOBULIN E (IGE) 04/16/2022 IMMUNOGLOBULIN G (IGG) 04/16/2022 IMMUNOGLOBULIN G (IGG) 01/11/2021 IMMUNOGLOBULIN G (IGG) 08/17/2023 IMMUNOGLOBULIN G (IGG) 08/12/2021 IMMUNOGLOBULIN M (IGM) 04/16/2022 CREATININE 08/12/2021 CHOLESTEROL, TOTAL 08/12/2021 Next Appt Details Provider Name:Magdi estevez, 12/26/2024 11:00:00 AM, [address] [place] [address], [facility], [place], [place], [id number], Insurance Providers Payer Name Payer Address Payer Phone Subscriber Number Group Number Insured Name Patient Relationship to Insured Coverage Start Date Coverage End Date Medicare [address] [facility] [place] [phone] [id number] James Ornelas Self - patient is the insured Medicaid [address] [place] [address] [phone] [id number] James Ornelas Self - patient is the insured Medical (General) History Medical History History ICD Code Common Variable Immunodeficiency Chronic sinusitis Hypertension Allergic rhinitis Fatty liver Hyperlipidemia Anxiety History of Pneumonia Varicella Zoster History of Giardia infection Irritable bowel syndrome Gout
--- OUTSIDE RECORDS SUMMARY | 2024-12-05 14:01 | XMS_ITS | Patient Health Record ---
Author Organization [facility] Address [address] [place] [address] Care Team Providers Care Front Clerk Name Role Phone Kashmir Alanis MD Primary Care Provider Joey Magana Unavailable [phone] Allergies Allergen (clinical drug ingredient) Drug/Non Drug Allergy documented on EMR Reaction Allergy Type Onset Date Status codeine Codeine Unknown Drug Allergy Active Shellfish (FN) shell fish (uncoded) Unknown Allergy Active Reason For Referral No Information Medications Medication SIG (Take, Route, Frequency, Duration) Notes Start Date End Date Status Multivitamin Adults 50+ - as directed Orally Active Lisinopril 20 MG Oral for 90 A ctive Allopurinol 300 MG Oral for 90 Active Gemfibrozil 600 MG Oral for 90 Active Social History Tobacco Use: Social History Observation Description Date Details (start date - stop date) Never Smoker NA - NA Tobacco Use/Smoking Question Answer Notes Patient is a nonsmoker Alcohol Screen Question Answer Notes Did you have a drink contain ing alcohol in the past year? Yes How often did you have a dri nk containing alcohol in the past year? 2 to 3 times a week (3 points) How many drinks did you have on a typical day when you were drinking in the past year? 1 or 2 drinks (0 point) How often did you have 6 or more drinks on one occasion in the past year? Never (0 point) Points 3 Interpretation Negative Section Notes: Nonsmoker; no sig alcohol Problems Problem Type SNOMED Code ICD Code Onset Dates Problem Status W/U Status Risk Notes Problem 993347580 Encounter for screening for malignant neoplasm of colon (Z12.11) Active confirmed Problem 455775973875236 Preprocedural examination (Z01.818) Active confirmed Problem 958151412 Fatty liver (K76.0) Active confirmed Problem Diverticulosis of colon (000976593) Diverticulosis of colon (K57.30) Active confirmed Plan Of Treatment Pending Test Test Name Order Date Pathology 11/18/2021 Future Test Test Name Order Date COLONOSCOPY 02/07/2021 Insurance Providers Payer Name Payer Address Payer Phone Subscriber Number Group Number Insured Name Patient Relationship to Insured Coverage Start Date Coverage End Date MEDICARE OF [place] [address] [place] [address] [id number] WILY NEGRON Self - patient is the insured MEDICAID OF [facility] [address] [place] [address] [id number] WILY NEGRON Self - patient is the insured Medical (General) History Medical History History ICD Code Hypertension Denies RI,DM,CVA,Lung disease,renal dise ase EGD/Colonoscopy in 2007 Fatty liver--w/u in approx 2007 Gout Hyperlipidemia Common Variable Immune Deficiency--on SQ Hizentra IG weekly Sleep apnea-uses CPAP Surgical History Surgery Date(Month/Year) Umbilical hernia repair
--- OUTSIDE RECORDS SUMMARY | 2024-12-05 14:01 | XMS_ITS ---
Author Organization [facility] [place] Address [address] [place], [place] [id number] Care Team Providers Care Sprinkler Driver Name Role Phone IndiaariadneRl Primary Care Provider Magdi Peguero Unavailable [phone] Allergies Allergen (clinical drug ingredient) Drug/Non Drug Allergy documented on EMR Reaction Allergy Type Onset Date Status codeine Codeine (uncoded) GI distress Allergy Active Shellfish (FN) Shellfish (uncoded) GI Distress Allergy Active REASON FOR VISIT Common variable immunodeficiency syndrome, FOLLOW UP- SINUSITIS Medications Medication SIG (Take, Route, Frequency, Duration) Notes Start Date End Date Status Allopurinol 300 MG 1 tablet Orally Once a day Active Hizentra 4 GM/20ML 15 grams Subcutaneou s Weekly Active EpiPen 2-Alexis 0.3 MG/0.3ML as directed Injection As Needed as needed Active Cefpodoxime Proxetil 100 MG 1 tablet with food Orally every 12 hrs for 7 days 06/27/2024 Active predniSONE 10 MG 6 tablets today and tomorrow, then taper by 1 tab every day Orally Once a day for 7 days 06/27/2024 Active Citalopram Hydrobromide 40 MG 1 tablet Orally Once a day for 90 days one tablet once a day Active CPAP DX: GORDO G47.33 as directed SETTIN GS 5-13cm H20: fit for mask SIG DATE: During sleep nightly for the treatment of sleep apnea Active Fluticasone Propionate 50 MCG/ACT 2 sprays in each nostril Nasally Twice a day for 30 days Active Vital Signs Weight 210 lbs 06/27/2024 Blood pressure systolic 124 mm Hg 06/27/20 24 Blood pressure diastolic 72 mm Hg 024 Heart Rate 84 /min 06/27/2024 Respiratory Rate 16 /min 06/27/2024 Temperature 97.5 degrees Fahrenheit 06/27/20 Height 67 in 06/27/2024 BMI 32.89 kg/m2 06/27/2024 Encounters Encounter Location Date Provider Diagnosis [facility] [address] [place], [place] [id number] 06/27/2024 Magdi Gaytan Upper respiratory tr act infection J06.9 ; Common variable immunodeficiency D83.9 ; Recurrent sinusitis J32.9 ; Rhinitis J31.0 ; Eustachian tube dysfunction H69.80 ; Obstructive sleep apnea G47.33 ; Fatigue R53.83 and Hyperlipidemia E78.5 Assessments Encounter Date Diagnosis (ICD Code) Assessment [...] worsen Overall, stable. Recurrent sinusitis requiring treatment. 06/27/2024 Common variable immunodeficiency (ICD-10 - D83.9) [...] Recurrent sinusitis requiring treatment. Plan Of Treatment Medication Medication Name Sig Start Date Stop Date Notes Cefpodoxime Proxetil 100 MG 1 tablet wit h food Orally every 12 hrs for 7 days 06/27/2024 predniSONE 10 MG 6 tablets today and tomorrow, then taper by 1 tab every day Orally Once a day for 7 days 06/27/2024 Fluticasone Propionate 50 MCG/ACT 2 sprays in each nostril Nasally Twice a day for 30 days Treatment Notes Assessment Notes Upper respiratory tract infection I disc ussed my impressions with James. I will treat him with a course of antibiotic as well as a tapering dose of prednisone. Additional interventions as described. I have asked him that contact me should his symptoms not improve and certainly should they worsen Common variable immunodeficiency At this time he is stable. He will continue to receive subcutaneous immunoglobulin (ScIg). IgG lkevels have been adequate. I recommended a follow-up visit in 6 months. However, I have asked him to contact me before then for any questions, concerns Recurrent sinusitis Consider referral fo r ENT consultation. He will continue his topical nasal steroid spray Rhinitis I have asked him to use the nasal saline rinse regularly followed by application of a topical nasal steroid spray Obstructive sleep apnea He will continue nightly use of CPAP Fatigue As above Hyperlipidemia He will continue to follow with his primary care physician. e previously discussed the potential for premature atherosclerosis with immunoglobulin replacement therapy Other Portions of this not e were dictated using voice recognition technology. Please forgive grammar, spelling and punctuation errors Next Appt Details Follow Up: 6 Months with Tracie Montague NP or Dr. Gaytan, Reason: Provider Name:Magdi estevez, 12/26/2024 11:00:00 AM, [address], [address], [place], [place], [id number], Progress Notes * James MALDONADODOB: 0 (54 yo M)Acc No.[id number]:06/27/2024 Progress note Patient:James BILLY Provider:?Magdi Gaytan M.D. :1970???Age:54 Y???Sex:Male Dante e:06/27/2024 Address:[address] [place], [place] [id number] Pcp:Rl Alanis Subjective: * Chief Complaints: * ???Common variable immunodef iciency syndromeFOLLOW UP- SINUSITIS * HPI: ???Allergy/Pulmonary:?Mr. James Maldonado returns to [facility] for ongoing pulmonary and allergy follow-up.? He has been followed for his common variable immunodeficiency syndrome.? He receives subcutaneous immunoglobulin weekly at home.? He has not had any difficulty with that.? This past April he did contact us with symptoms suggesting a sinus infection.? I did treat him with a course of antibiotic.? Symptoms did improve though may not have returned to his prior baseline.? More recently, they have worsened.? He notes increased nasal congestion and sinus pressure.? He has markedly reduced nasal airflow.? Sense of smell has been absent.? He has had anterior and posterior nasal drainage.? He does have a cough and will raise discolored sputum.? He has not had any fever or chills.? He is not bothered by exertional dyspnea.? He has no dyspnea at rest or that which wakes him from sleep.? He does have sleep apnea and is faithful with use of his CPAP.? In general, his energy level is good.? He does note some increased fatigue with above noted symptoms.? He has no active gastrointestinal symptoms. * ROS:?Follow up ROS 2:?General?No fever, chills, sweats, + fatigue, Appetite good, weight stable.?EENT?No change in vision, No ocular discharge or pruritis, No change in hearing. Sense of smell/taste intact.?Cardiac?No chest pain, pressure or tightness, No extremity edema, No lightheadedness, No orthopnea or PND.?Respiratory?No dyspnea, wheezing, chest tightness, cough or sputum production.?GI?No nausea or vomiting. No sx of SARA.?Musculoskeletal?No acute arthralgias or myalgias.?Dermatologic?No rash, eczema or urticaria.?Neurologic? No focal motor or sensory neurologic symptoms.?Psychiatric?No complaint of depression or anxiety.?Hematology/Lymph?No swollen glands, No easy bruising. Feels he does not heal easily.?Actively smoking?No.??Negative.? * Medical History:? * Surgical History:?Denies Pas t Surgical History * Hospitalization/Major Diagno stic Procedure:? * Family History:?Father: jameson tol[place], [place], diagnosed with Hypertension, Heart Disease, Diabetes mellitus.?Mother: alive, hyperlipidemia, diagnosed with Hypertension.? Hyperlipidemia. Hypertension.; 2 brothers. * Social History:?Marital stat us: . Children: Three. 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 Tobacco?Smoking History:?current some day smoker Cigars.?Alcohol: Rare. * Medications:?TakingFluticaso ne Propionate 50 MCG/ACT Suspension 2 sprays in each nostril Nasally Twice a day Allopurinol 300 MG Tablet 1 tablet Orally Once a day Citalopram Hydrobromide 40 MG Tablet 1 tablet Orally Once a day , Notes to Pharmacist: one tablet once a dayCPAP DX: GORDO G47.33 Airsense 10 Auto, heated hose, heated humidifier, compliance, supplies: filter, cushion, headgear, humidifier tub as directed SETTINGS 5-13cm H20: fit for mask SIG DATE: During sleep nightly for the treatment of sleep apnea EpiPen 2-Alexis 0.3 MG/0.3ML Device as directed Injection As Needed , Notes to Pharmacist: as neededHizentra 4 GM/20ML Solution 15 grams Subcutaneous Weekly Medication List reviewed and reconciled with the patientTaking Fluticasone Propionate 50 MCG/ACT Suspension 2 sprays in each nostril Nasally Twice a day Taking Allopurinol 300 MG Tablet 1 tablet Orally Once a day Taking Citalopram Hydrobromide 40 MG Tablet 1 tablet Orally Once a day , Notes to Pharmacist: one tablet once a dayTaking CPAP DX: GORDO G47.33 Airsense 10 Auto, heated hose, heated humidifier, compliance, supplies: filter, cushion, headgear, humidifier tub as directed SETTINGS 5-13cm H20: fit for mask SIG DATE: During sleep nightly for the treatment of sleep apnea Taking EpiPen 2-Alexis 0.3 MG/0.3ML Device as directed Injection As Needed , Notes to Pharmacist: as neededTaking Hizentra 4 GM/20ML Solution 15 grams Subcutaneous Weekly Medication List reviewed and reconciled with the patient * Allergies:?Codeine: GI distr ess - Side EffectsShellfish: GI Distress - Side Effectsno[Allergies Verified] Objective: * Vitals:?Wt: 210, BP:124/72, HR: 84, RR: 16, O2 sat: 98%RA, Temp: 97.5, Ht: 67, BMI:32.89. * Examination: ???General Physical Exam: ?General Appearance:?Middle aged male in no acute distress.?Eyes?Conjunctiva not injected, Sclera not icteric, EOMI, PERRL.?Ears?No significant abnormalities, bilaterally.?Nose?Moderate congestion. Erythematous mucosa. No nasal discharge. No nasal polyps seen.?Oral cavity?No significant abnormalities appreciated.?The hypopharynx?Normal in appearance; no erythema or exudate.?Neck?Supple, JVP is normal, no masses, thyroid is normal.?Chest?Normal shape and expansion with respiration.?Lungs?Respiratory rate is normal, Percussion normal bilaterally, Breath sounds are clear bilaterally.?Heart:?Normal rate, regular rhythm, Normal S1, normal S2, no murmurs, rub, gallop.?Extremities?No digital clubbing, acrocyanosis or peripheral edema.?Lymph?No cervical, submandibular or supraclavicular adenopathy.?Skin:?Warm and dry, No rash on partial skin exam.?Neuro:?A & O x 3, Grossly nonfocal motor and sensory exam.?Data: ?Radiographs?Sinus CT- 06/02/22 - mild to moderate nasal septal deviation to the left.? The olfactory recesses are partially opacified on the right and clear on the left.? Nonspecific partial opacification of the right middle meatus.? Nasal turbinates appear symmetric and within normal limits.? No discrete nasal cavity masses.? Nasopharyngeal soft tissues appear symmetric and normal in attenuation.? Moderate mucosal thickening seen throughout the right maxillary sinus with occlusion of the right OMC without air-fluid level.? 1 cm probable retention cyst along the posterior for of the left maxillary sinus with mild mucosal thickening along the anterior floor with a patent left OMC.? Bilateral Antonio cells are noted with anatomic narrowing of the maxillary infundibula. Mild mucosal thickening along the ethmoid septae on the right with otherwise been opacified ethmoid complex.? Intact bony bower.? Frontal sinuses are hypoplastic.? Mild to moderate mucosal thickening along the floor of the sphenoid sinus on the left.? Right side of the sphenoid sinus is small.? The mastoids and middle ear cavities are unopacified.?Laboratory Reports? 04/28/22:Immunoglobulins- IgG 857 mg/dL; IgA < 5mg/dL; IgM < 5mg/dL, IgE < 2 kU/L.?HST?HST- 09/09/17 - Home sleep testing was personally reviewed by me and shows the following: Sleep latency?5 min;. Sleep efficiency 82.5%; AHI 21/hr; RDI 47/hr; SpO2 < 90% for?< 1?min. Mean SpO2 95.8%.?Compliance data: ?Compliance?30 Day review (07/15/23-08/13/23) -?Usage - 100%, Usage > 4 hours - 100%, Average time of use - 7 hrs. 54 min., Average AHI 1.1, Leak fraction acceptable.? Assessment: * Assessment: 1.?Upper respiratory tract i nfection - J06.9 (Primary)???2.?Common variable immunodeficiency - D83.9???3.?Recurrent sinusitis - J32.9???4.?Rhinitis - J31.0???5.?Eustachian tube dysfunction - H69.80???6.?Obstructive sleep apnea - G47.33???7.?Fatigue - R53.83???8.?Hyperlipidemia - E78.5??? Overall, stable. Recurrent s inusitis requiring treatment. Plan: * Treatment: 2.?Common variable immunodef iciency? Notes: At this time he is stable. He will continue to receive subcutaneous immunoglobulin (ScIg). IgG lkevels have been adequate. I recommended a follow-up visit in 6 months. However, I have asked him to contact me before then for any questions, concerns?? 3.?Recurrent sinusitis? Refill Fluticasone Propionate Suspension, 50 MCG/ACT, 2 sprays in each nostril, Nasally, Twice a day, 30 days, 2, Refills 5.?? Notes: Consider referral for ENT consultation. He will continue his topical nasal steroid spray?? 4.?Rhinitis? Notes: I have asked him to use the nasal saline rinse regularly followed by application of a topical nasal steroid spray?? 5.?Obstructive sleep apnea? Notes: He will continue nightly use of CPAP?? 6.?Fatigue? Notes: As above?? 7.?Hyperlipidemia? Notes: He will continue to follow with his primary care physician. e previously discussed the potential for premature atherosclerosis with immunoglobulin replacement therapy?? 8.?Others? Notes: Portions of this note were dictated using voice recognition technology. Please forgive grammar, spelling and punctuation errors ?? * Procedure Codes:? * Follow Up:?6 Months with Tracie Montague NP or Dr. Gaytan * * Sign off status: Completed true * Provider:?Magdi Gaytan M.D. Date:?1 08/28/2023 Generated for Barbie jessica/Jose C/eTransmitting on:?12/05/2024 02:01 PM EDT History and Physical Notes * HPI (History of Present Illness) Category Sub-Category Detail Notes Category Not es Allergy/Pulmonary Mr. James pham returns to [facility] for ongoing pulmonary and allergy follow-up. He has been followed for his common variable immunodeficiency syndrome. He receives subcutaneous immunoglobulin weekly at home. He has not had any difficulty with that. This past April he did contact us with symptoms suggesting a sinus infection. I did treat him with a course of antibiotic. Symptoms did improve though may not have returned to his prior baseline. More recently, they have worsened. He notes increased nasal congestion and sinus pressure. He has markedly reduced nasal airflow. Sense of smell has been absent. He has had anterior and posterior nasal drainage. He does have a cough and will raise discolored sputum. He has not had any fever or chills. He is not bothered by exertional dyspnea. He has no dyspnea at rest or that which wakes him from sleep. He does have sleep apnea and is faithful with use of his CPAP. In general, his energy level is good. He does note some increased fatigue with above noted symptoms. He has no active gastrointestinal symptoms. Examination Category Sub-Category Detail Notes Category Not es General Physical Exam Eyes Conjunctiv a not injected, Sclera not icteric, EOMI, PERRL Neck Supple, JVP is ivone l, no masses, thyroid is normal Heart: Normal rate, regular rhythm, Normal S1, normal S2, no murmurs, rub, gallop Lungs Respiratory rate is normal, Percussion normal bilaterally, Breath sounds are clear bilaterally General Appearance: Middle aged male in no acute distress Oral cavity No significant abnor malities appreciated Chest Normal shape and exp ansion with respiration Extremities No digital clubbing, acrocyanosis or peripheral edema Ears No significant abnor malities, bilaterally Nose Moderate congestion. Erythematous mucosa. No nasal discharge. No nasal polyps seen The hypopharynx Normal in appearance ; no erythema or exudate Skin: Warm and dry, No danica h on partial skin exam Neuro: A & O x 3, Grossly n onfocal motor and sensory exam Lymph No cervical, submand ibular or supraclavicular adenopathy Data Radiographs Sinus CT - 06/02 - mild to moderate nasal septal deviation to the left. The olfactory recesses are partially opacified on the right and clear on the left. Nonspecific partial opacification of the right middle meatus. Nasal turbinates appear symmetric and within normal limits. No discrete nasal cavity masses. Nasopharyngeal soft tissues appear symmetric and normal in attenuation. Moderate mucosal thickening seen throughout the right maxillary sinus with occlusion of the right OMC without air-fluid level. 1 cm probable retention cyst along the posterior for of the left maxillary sinus with mild mucosal thickening along the anterior floor with a patent left OMC. Bilateral Antonio cells are noted with anatomic narrowing of the maxillary infundibula. Mild mucosal thickening along the ethmoid septae on the right with otherwise been opacified ethmoid complex. Intact bony bower. Frontal sinuses are hypoplastic. Mild to moderate mucosal thickening along the floor of the sphenoid sinus on the left. Right side of the sphenoid sinus is small. The mastoids and middle ear cavities are unopacified Laboratory Reports 04/28/22: Immunoglob ulins - IgG 857 mg/dL; IgA < 5mg/dL; IgM < 5mg/dL, IgE < 2 kU/L Miscellaneous HST HST - 09/09/17 - Home sleep testing was personally reviewed by me and shows the following: Sleep latency 5 min;. Sleep efficiency 82.5%; AHI 21/hr; RDI 47/hr; SpO2 < 90% for < 1 min. Mean SpO2 95.8% Compliance data Compliance 30 Day review (1 09/15/22-08/13/23) - Usage - 100%, Usage > 4 hours - 100%, Average time of use - 7 hrs. 54 min., Average AHI 1.1, Leak fraction acceptable
--- OUTSIDE RECORDS SUMMARY | 2024-12-05 14:01 | XMS_ITS | Continuity of Care Document ---
Author Organization 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 Care Team Information Receiv er [phone] Problems Active Problems Provider Date Type 2 diabetes mellitus BRAVO Handley Onse t: 11/30/2023 Depressive disorder BRAVO Handley Onset: Obstructive sleep apnea syndrome BRAVO Handley Onset: 11/30/2023 Mixed hyperlipidemia BRAVO Handley Onset: 0 11/30/2023 Anxiety BRAVO Handley Onset: 2023 Pure hypercholesterolemia BRAVO Handley Ons et: 11/30/2023 Essential hypertension BRAVO Handley Onset: 11/30/2023 Social History Type Date Description Comments Sex Unknown Marital Status Legal Status: Lives With Spouse Occupation [employer] Use Occasionally consumes alcoho l Allergies and adverse reactions Active Allergies Criticality Reaction Severity Comments Date Codeine Unable to assess criticality 11/30/2023 Medications Active Medications SIG Qnty Indications Ordering Provider Date Fluticasone Zwfpikdgkv38snr/Act Suspension Use 2 Sprays Into Each Nostril Once Daily Unknown [id number] Tablets Take 1 Tablet By Mouth Every Day Kashmir Alanis M.D. Losartan Tntkwkbdl70bc Tablets 1 by mouth every day 90tabs Kashmir Alanis M.D. Atorvastatin Rcfvqsh25bt Tablets 1 by mouth every day 90tabs Kashmir Alanis M.D. Vital Signs Date Vital Result Comment 11/30/2023 1:51pm BP Systolic 136 mmHg BP Diastolic 80 mmHg Heart Rate 71 /min Height 66 inches 5'6 Weight 212.38 lb BMI (Body Mass Index) 34.3 kg/m2 Results Test Acquired Date Facility Test Result H/L Range N ote Glucose Fingerstick 11/30/2023 Inhouse Glucose Fingerstick 123 Hemoglobin A1c 11/30/2023 Inhouse Hemoglobin A1c 5.8% Medical Devices Description No Information Available Encounters Type Date Location Provider Dx Diagnosis Office Visit 11/30/2023 1:30p Main Office BRAVO Handley R42 Dizziness and giddiness Z83.3 Family history of di abetes mellitus Assessments Date Code Description Provider 11/30/[address] 11/30/2023 Z83.3 Family history of diabetes BRAVO Starr Plan of Treatment No Information Available Functional Status Description No Information Available Mental Status Description No Information Available Referrals Description No Information Available
--- OUTSIDE RECORDS SUMMARY | 2024-12-05 14:01 | XMS_ITS ---
Author Organization [facility] Address [address] [place] [address] [address] [place], [place] [id number] Care Team Providers Care Gynecologist Name Role Phone Zeke Rl Primary Care Provider Magdi Peguero Unavailable [phone] Rober Ferris Unavailable [phone] REASON FOR VISIT sinus infection Medications Medication SIG (Take, Route, Frequency, Duration) Notes Start Date End Date Status Amoxicillin-Pot Clavulanate 875-125 MG 1 tablet Orally every 12 hrs for 10 days 11/11/2024 Active predniSONE 20 MG 2 tablets Orally Onc e a day for 5 days 11/11/2024 Active Encounters Encounter Location Date Provider Diagnosis [facility] [address] [address] 11/11/2024 Rober Ferris Upper respiratory tract infection J06.9 Assessments Encounter Date Diagnosis (ICD Code) Assessment Notes Treatment Notes Treatment Clinical Notes Section Notes 11/11/2024 Upper respiratory tract infection (ICD-10 - J06.9) Plan Of Treatment Medication Medication Name Sig Start Date Stop Date Notes Amoxicillin-Pot Clavulanate 875-125 MG 1 tablet Orally every 12 hrs for 10 days 11/11/2024 predniSONE 20 MG 2 tablets Orally Onc e a day for 5 days 11/11/2024 Next Appt Details Provider Name:Magdi estevez, 12/26/2024 11:00:00 AM, [address] [facility] [address] [facility] [address] [facility], [address], [place], [place], [id number], Progress Notes * James MALDONADODOB: 0 (54 yo M)Acc No.[id number]:11/11/2024 Patient:?James MALDONADO :1970???Age:54 Y???Sex:Male Address:[address] [place] [address], [id number] * Refills? Start predniSONE Tablet, 20 MG, Orally, 10 Tablet, 2 tablets, Once a day, 5 days, Refills=1 Start Amoxicillin-Pot Clavulanate Tablet, 875-125 MG, Orally, 20 Tablet, 1 tablet, every 12 hrs, 10 days, Refills=0 Subjective: * Chief Complaints: * ???Sinus infection * Medical History:? * Surgical History:? * Hospitalization/Major Diagno stic Procedure:? * Medications:? Objective: * Vitals:? * Physical Examination:? Assessment: * Assessment: 1.?Upper respiratory tract i nfection - J06.9 (Primary)??? Plan: * Treatment: * Procedure Codes:? * true * Date:? Generated for Barbie jessica/Jose C/Mervatsmitting on:?12/05/2024 02:01 PM EDT
--- OUTSIDE RECORDS SUMMARY | 2024-12-05 14:01 | XMS_ITS ---
Author Organization [facility] [address] [id number] Care Team Providers Care Client Customer Manager Name Role Phone IndiaariadneRl Primary Care Provider Magdi Peguero [phone] REASON FOR VISIT UPDATE: 09/27/24 Triage - Sinus infection Medications Medication SIG (Take, Route, Frequency, Duration) Notes Start Date End Date Status Sulfamethoxazole-Trimethop rim 800-160 MG 1 tablet Orally Twice a day for 10 days 09/27/2024 Active predniSONE 20 MG 2 tablets Orally Onc e a day for 5 days 09/27/2024 Active Encounters Encounter Location Date Provider Diagnosis [facility] [address] [id number] 09/26/2024 Magdi Gaytan Plan Of Treatment Medication Medication Name Sig Start Date Stop Date Notes Sulfamethoxazole-Trimethopri m 800-160 MG 1 tablet Orally Twice a day for 10 days 09/27/2024 predniSONE 20 MG 2 tablets Orally Onc e a day for 5 days 09/27/2024 Next Appt Details Provider Name:Magdi estevez, 12/26/2024 11:00:00 AM, [address] [facility] [facility] [address], [place], [place], [phone], Progress Notes * James MALDONADODOB: 0 (54 yo M)Acc No.[id number]:09/26/2024 Patient:?James MALDONADO :1970???Age:54 Y???Sex:Male Address:[address] [place] [address], [phone] * Refills? Start Sulfamethoxazole-Trimethoprim Tablet, 800-160 MG, Orally, 20 Tablet, 1 tablet, Twice a day, 10 days, Refills=0 Start predniSONE Tablet, 20 MG, Orally, 10 Tablet, 2 tablets, Once a day, 5 days, Refills=0 * true * Date:? Generated for Barbie jessica/Jose C/Mervatsmitting on:?12/05/2024 02:01 PM EDT
[2024-12-05 14:04] VITALS: BP 140/78; PULSE 68; RESP 16; TEMP 36.6; O2SAT 98; BMI 33.7
[2024-12-05 14:19] VITALS: BP 150/88
== END 2024-12-05 14:25 | disposition home or self-care (01) ==
LOC: HO.HMCHD 13:58
PROVIDERS: PCP Internal Medicine; Visit Provider Physician Assistant
DX: I10 Essential (primary) hypertension (principal); E78.5 Hyperlipidemia, unspecified; M10.9 Gout, unspecified; E66.9 Obesity, unspecified; D83.9 Common variable immunodeficiency, unspecified

== ENCOUNTER → 2024-12-05 13:57 | Outpatient (BNVA) | payer MEDICARE, MEDICAID, SELFPAY | PROVIDERS: PCP Internal Medicine; Visit Provider Physician Assistant | DX: I10 Essential (primary) hypertension (principal); E78.5 Hyperlipidemia, unspecified; K76.0 Fatty (change of) liver, not elsewhere classified; M10.9 Gout, unspecified; E66.9 Obesity, unspecified; D83.9 Common variable immunodeficiency, unspecified; G47.33 Obstructive sleep apnea (adult) (pediatric) | CPT/HCPCS: 99202 ==

== ENCOUNTER 2024-12-19 13:27 | Outpatient (AMB) | payer MEDICARE, MEDICAID, SELFPAY ==
--- NOTE | 2024-12-19 13:44 | MHC.PC.OV ---
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 Accompanied by: Self / Same As Patient Allergies codeine [Codeine] Allergy (Intermediate, Verified 12/19/24 13:45) SOB/TACHYCARDIA, tachycardia, SOB lisinopril Adverse Reaction (Verified 12/19/24 13:45) Dry cough Shellfish Allergy (Intermediate, Uncoded 12/05/24 14:02) NAUSEA & VOMITING Tobacco use date assessed: 12/19/24 Dental Screening Dental Screen Date: 12/19/24 Did you have a dental visit in the last 12 months?: Yes Did you have a dental problem in the last 6 months where you did not have access to dental care?: No [facility] Medical History Obesity COVID-19 vaccine series completed GORDO on CPAP Common variable immunodeficiency Hyperlipidemia Gout Fatty liver HTN (hypertension) Surgical History Hx of colonoscopy (~11/18/21) History of esophagogastroduodenoscopy (EGD) History of umbilical hernia repair Family History (Updated 12/19/24 @ 14:00 by Lizabeth Raymond MA) Mother No problems noted. Father No problems noted. Social History Housing: House Are you a primary palliative care nurse practitioner to a significant other at home: No Do you presently have visiting nurse or other home services: No Patient Tobacco Use Status: Never used Tobacco Tobacco use type: Cigarette e-Cigarette/Vaping Use: Never Used Second Hand Smoke Exposure: No service: No Current occupational status: employed Cognitive needs: No Hearing needs: No Vision needs: Yes (rx glasses) Questionnaire PHQ-9 Over the last 2 weeks, how often have you been bothered by any of the following problems? 1. Little interest or pleasure in doing things: not at all 2. Feeling down, depressed, or hopeless: not at all 3. Trouble falling or staying asleep, or sleeping too much: not at all 4. Feeling tired or having little energy: not at all 5. Poor appetite or overeating: not at all 6. Feeling bad about yourself - or that you are a failure or have let yourself or your family down: not at all 7. Trouble concentrating on things, such as reading the newspaper or watching television: not at all 8. Moving or speaking so slowly that other people could have noticed. Or the opposite - being so fidgety or restless that you have been moving around a lot more than usual: not at all 9. Thoughts that you would be better off or of hurting yourself in some way: not at all Total score: 0 Source: Developed by Drs. Joey Tidwell, Carmina Kelly, Joseph Lauren and colleagues, with an educational clementine from [employer]. Thrive Questionnaire Date Thrive assessed: 12/19/24 I am a: Patient Within the past 12 months, did the food you bought not last and you didn't have the money to get more?: Never true Within the past 12 months, did you worry whether your food would run out before you got money to buy more?: Never true Do you have trouble paying for medicines?: No Do you have trouble getting transportation to medical appointments?: No Do you have trouble paying your heating and electricity bill?: No Do you have trouble taking care of your child, family member or friend?: No Do you have trouble with day-to-day activities such as bathing, preparing meals, shopping, managing finances, etc.?: No Are you currently unemployed and looking for a job?: No Are you interested in more education?: No THRIVE Score: 0 AUDIT C Alcohol Use Questionnaire (AUDIT-C) 1. How often do you have a drink containing alcohol?: Monthly or less 2. How many drinks containing alcohol do you have on a typical day when you are drinking?: 1 or 2 3. How often do you have six or more drinks on one occasion?: Less than monthly Total Score: 2 SALVADOR-7 AMB Questionnaire SALVADOR-7 Date SALVADOR - 7 assessed: 12/19/24 Feeling nervous, anxious, or on edge: 0 = Not at all Not being able to stop or control worryin = Not at all Worrying too much about different things: 0 = Not at all Trouble relaxin = Not at all Being so restless that it is hard to sit still: 0 = Not at all Becoming easily annoyed or irritable: 0 = Not at all Feeling afraid as if something awful might happen: 0 = Not at all Total SALVADOR-7 score (0-4 normal; 5-9 mild; 10-14 moderate; 15-21 severe): 0 Source: Developed by Drs. Joey Tidwell, Carmina Kelly, Joseph Lauren and colleagues, with an educational clementine from [employer]. Physical exam (Primary Care) Vital Signs: Last Vital Signs Temp 97.7 F 12/19/24 13:45 Pulse 73 12/19/24 13:45 BP 140/80 H 12/19/24 13:45 Pulse Ox 98 12/19/24 13:45 Oxygen Delivery Method Room Air 12/19/24 13:45 BMI result Body Mass Index 34.2 Tobacco/Smoking Status: Tobacco use Status Tobacco use date assessed 12/19/24 12/19/24 13:46 Patient Tobacco Use Status Never used Tobacco 12/19/24 14:00 Tobacco use type Cigarette 12/19/24 13:46 e-Cigarette/Vaping Use Never Used 12/19/24 14:00 PHQ-9: PHQ-9 Score PHQ-9: Total score 0 12/19/24 14:00 Thrive Assessment: Date of Thrive Assessment Date Thrive assessed 12/19/24 12/19/24 13:46 Coding Level of Care Code Est Pt Level 4 (59257) Complex EM visit Add On G2211 Diagnoses HTN (hypertension) I10 Assessment & Plan Assessment & Plan (1) HTN (hypertension): Code(s): I10 - Essential (primary) hypertension Category: Medical Plan: Patient tolerating the medication well. Losartan increased to 100 mg once a day. Plan History of Present Illness - The patient is a 54-year-old male presenting for management of essential hypertension and discussion of prediabetes. - Reports recent adjustment in blood pressure medication to increase dosage. - Family history includes diabetes in both father and brother, increasing concern about personal diabetes risk. - Desires evaluation for weight management interventions due to overweight status, lack of insurance coverage for weight-loss medication noted. - Intermittent home blood pressure monitoring reveals consistently elevated readings but not significantly high. - Previous discussions about being overweight and considering weight-loss therapy for preventive measures against diabetes progression. 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 Review of Systems - Cardiovascular: Reports elevated blood pressure readings intermittently. - Endocrine: Denies current symptoms associated with diabetes but has a family history of diabetes. - Gastrointestinal: Denies abdominal pain. - Respiratory: Denies respiratory symptoms. Physical Exam General: Cooperative and healthy appearing Nutritional Appearance: Well nourished Orientation/consciousness: Patient oriented x3 Limitations: No limitations Head: Normal to inspection General: Appearance normal, both eyes and all related structures Neck: Normal visual inspection Chest: Normal palpation of entire chest wall Respiratory: No pain, breathe normal, deep breaths taken without issue ormal respiratory effort Neurology: Patient oriented x3 Results Plan 1. Essential Hypertension - Continue with current medication regimen, taking two 50 mg tablets until prescription is updated. - Encourage regular home blood pressure monitoring and bring readings to appointments. - Emphasize adherence to lifestyle changes, including dietary adjustments and increased physical activity. 2. Prediabetes - Discuss familial risk and recommend lifestyle modifications to include balanced diet and physical activity. - Noted insurance coverage limitation for specific weight-loss medication targeting prediabetes management. Discussion Notes During the visit, we addressed the patient's concern regarding blood pressure management, emphasizing the need to adhere to the adjusted medication dosage and importance of regular home monitoring. We reviewed family history of diabetes and its implications on the patient's prediabetic condition. I clarified that weight-loss medication is currently not covered by the patient?s insurance for prediabetes. We discussed lifestyle modifications, emphasizing a healthy diet and weight loss to reduce diabetes risk, with instructions to monitor blood pressure at home and present readings at follow up visits. Patient Instructions - Take your prescribed medication as directed, which is two 50 mg tablets until your prescription is updated. - Monitor your blood pressure at home regularly, keep a log of your readings, and bring it to your next appointment. - Follow a healthy diet and try to increase physical activity to support better health and manage weight. - Understand that your insurance may not cover weight-loss medications, but focus on lifestyle changes for now. - Contact the office if you experience any new symptoms or have concerns about your health. Medications: New losartan 100 mg PO DAILY 90 tabs 1RF Discontinued losartan Discontinued Reason: Doctor's Order 75 mg (1.5 x 50 mg) PO DAILY 135 tabs 1RF
[2024-12-19 13:45] VITALS: BP 140/80; PULSE 73; TEMP 36.5; O2SAT 98; BMI 34.2
--- OUTSIDE RECORDS SUMMARY | 2024-12-19 14:34 | XMS_ITS | Patient Health Record ---
Author Organization [facility] [place] Address [address] [place], [place] [id number] Care Team Providers Care Netbackup Admin Name Role Phone Rl Alanis Primary Care Provider Magdi Peguero Unavailable [phone] Rober Ferris Unavailable [phone] Allergies Allergen (clinical drug ingredient) Drug/Non Drug [...] Status W/U Status Risk Notes Problem Hypertension (75673739) Hypertension (I10) Active confirmed Problem Obstructive sleep apnea (25454231) Obstructive sleep apnea (G47.33) Active confirmed Problem Eustachian tube dysfunction (10039946) Eustachian tube dysfunction (H69.80) Active confirmed Problem Chronic rhinitis (34950954) Rhinitis (J31.0) Active confirmed Problem Vitamin D deficiency (64755214) Vitamin D deficiency (E55.9) Active confirmed Problem 75552106 Hypersomnia (G47.10) Active confirmed Problem Daytime somnolence (928593329540) Excessive daytime sleepiness (G47.19) Active confirmed Problem Hyperlipidemia (99488008) Hyperlipidemia (E78.5) Active confirmed Problem Fatigue (93136478) Fatigue (R53.83) Active conf irmed Problem 87147079 Acute sinusitis, recurrence not specified, unspecified location (J01.90) Active confirmed Problem Common variable agammaglobulinemia (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) Common variable immunodeficiency (D83.9) Active confirmed Problem Recurrent sinusitis (643010124) Recurrent sinusitis (J32.9) Active confirmed Vital Signs Heart Rate 84 /min 06/27/2024 Temperature 97.5 degrees Fahrenheit 06/27/2024 Respiratory Rate 16 /min 06/27/2024 Blood pressure diastolic 72 mm Hg 06/27/2024 Height 67 in 06/27/2024 Blood pressure systolic 124 mm Hg 06/27/2024 Weight 210 lbs 06/27/2024 BMI 32.89 kg/m2 06/27/2024 Encounters Encounter Location Date Provider Diagnosis [facility] [address] [id number] 06/27/2024 Magdi Gaytan Upper respiratory tr act infection J06.9 ; Common variable immunodeficiency D83.9 ; Recurrent sinusitis J32.9 ; Rhinitis J31.0 ; Eustachian tube dysfunction H69.80 ; Obstructive sleep apnea G47.33 ; Fatigue R53.83 and Hyperlipidemia E78.5 [facility] [address] [id number] 02/26/2024 Magdi Gaytan [facility] [address] [id number] 05/11/2024 Magdi Gaytan [facility] [address] [id number] 09/26/2024 Magdi Gaytan [facility] [address] [id number] 11/11/2024 Rober Rosenberges Upper respiratory tr act infection J06.9 [facility] [address] [id number] 02/08/[address] [facility] [address] [id number] 02/08/2024 Magdi Gaytan Assessments Encounter Date Diagnosis [...] Details Provider Name:Magdi estevez, 12/26/2024 11:00:00 AM, [address] [place] [address], [facility] [address], [place], [place], [id number], Insurance Providers Payer Name Payer Address Payer Phone Subscriber Number Group Number Insured Name Patient Relationship to Insured Coverage Start Date Coverage End Date Medicare [address] [place] [phone] [id number] James Ornelas Self - patient is the insured Medicaid [address] [place] [phone] [id number] James Ornelas Self - patient is the insured Medical (General) History Medical History History ICD Code Common Variable Immunodeficiency Chronic sinusitis Hypertension Allergic rhinitis Fatty liver Hyperlipidemia Anxiety History of Pneumonia Varicella Zoster History of Giardia infection Irritable bowel syndrome Gout
== END 2024-12-19 14:22 | disposition home or self-care (01) ==
LOC: HO.HMCHD 13:28
PROVIDERS: PCP Internal Medicine; Visit Provider Internal Medicine
DX: I10 Essential (primary) hypertension (principal)

== ENCOUNTER → 2024-12-19 13:27 | Outpatient (BNVA) | payer MEDICARE, MEDICAID, SELFPAY | PROVIDERS: PCP Internal Medicine; Visit Provider Internal Medicine | DX: I10 Essential (primary) hypertension (principal) | CPT/HCPCS: 99212 ==